=== PATIENT | male | born 1970 | race African-American/Black ===

== ENCOUNTER 2017-06-04 17:56 | Inpatient (IN) | payer MEDICARE, MEDICAID ==
[~2017-06-04] VITALS: Ht 190.5 cm; Wt 93.4 kg
[~2017-06-04 17:56] MED LIST: AMIODARONE PA; ATOR20TA PO; HYDR-523 PO; LABE100T PO; LOSA100T3 PO; METO-293 PO; NEPVIT PO; SEVE800T8 PO
[2017-06-04] MEDS ORDERED: MORPHINE SULFATE 4 MG/ML CPJ (NOT FOR IM USE) IV STA (19:15)
[2017-06-04] MEDS ORDERED: ONDANSETRON HCL 4MG/2ML VIAL IV STA (19:15)
[2017-06-04] MEDS ORDERED: ASPIRIN 325MG EC TABLET PO ONE (19:15)
[2017-06-04] MEDS ORDERED: SODIUM CHLORIDE 0.9% 500 ML IV ONE (19:15)
[2017-06-04 22:53] LABS: BASOPHILS % 0.7 % (0.0-2.0); EOSINOPHILS % 1.5 % (0.0-5.0); HEMATOCRIT. 29.6 % (42.0-52.0); HEMOGLOBIN. 9.2 g/dL (14.0-18.0); LYMPHOCYTES % 14.6 % (20.0-50.0); MEAN CORPUSCULAR HEMOGLOBIN 27.3 pg (28.0-32.0); MEAN CORPUSCULAR VOLUME 88.4 fL (80.0-94.0); MEAN PLATELET VOLUME 10.8 fl (7.4-10.4); MONOCYTES % 7.6 % (2.0-8.0); NEUTROPHILS % 75.6 % (40.0-76.0); PLATELET 169 x1000/uL (130-400); RED BLOOD CELL COUNT 3.35 mill/uL (4.7-6.1); RED CELL DISTRIBUTION WIDTH 20.3 % (11.6-14.6)
[2017-06-04 22:55] LABS: CHLORIDE 100 mEq/L (98-107)
[2017-06-04 22:58] LABS: INR 1.3; PARTIAL THROMBOPLASTIN TIME 36.1 sec (23.4-31.0)
[2017-06-04 23:06] LABS: CARBON DIOXIDE 25 mEq/L (21-32); TROPONIN I < 0.02 ng/mL (0.00-0.04)
[2017-06-05] MEDS ORDERED: MORPHINE SULFATE 4 MG/ML CPJ (NOT FOR IM USE) IV ONE (01:00)
[2017-06-05] MEDS ORDERED: ONDANSETRON HCL 4MG/2ML VIAL IV ONE (01:00)
[2017-06-05] MEDS ORDERED: IPRATROPIUM/ALBUTEROL 0.5-3(2.5)MG/3ML NEB INH PRN (03:00)
[2017-06-05] MEDS ORDERED: MAGNESIUM/ALUMINUM HYDROXIDE/SIMETHICONE 30ML UDC PO PRN (03:00)
[2017-06-05] MEDS ORDERED: ONDANSETRON HCL 4MG/2ML VIAL IV PRN (03:00)
[2017-06-05] MEDS ORDERED: MORPHINE SULFATE 4 MG/ML CPJ (NOT FOR IM USE) IV PRN (03:15)
[2017-06-05] MEDS: SODIUM CHLORIDE 0.9% INJ 3ML FLUSH IVF SCH ×3 (06:24→21:54)
[2017-06-05 09:00] VITALS: BP 115/35
[2017-06-05] MEDS: LABETALOL HCL 100MG TABLET PO SCH ×2 (09:30→21:00)
[2017-06-05 10:00] VITALS: BP 115/35
[2017-06-05] MEDS: FOLIC ACID/VITAMIN B COMP W-C TABLET PO SCH (10:05)
[2017-06-05] MEDS: SEVELAMER CARBONATE 800 MG TABLET PO SCH ×3 (10:05→18:35)
[2017-06-05] MEDS ORDERED: DEXTROSE 50% WATER 50ML SYRINGE IV PRN (11:45)
[2017-06-05] MEDS: INSULIN LISPRO 100 UNITS/ML SUBCUT SCH ×3 (12:28→21:00)
[2017-06-05] MEDS: BLOOD SUGAR DIAGNOSTIC STRIP TEST SCH ×3 (12:28→21:40)
[2017-06-05 12:55] VITALS: BP 110/44
[2017-06-05] MEDS: IBUPROFEN 600MG TABLET PO SCH ×2 (15:40→21:55)
[2017-06-05 16:00] VITALS: BP 118/42
[2017-06-05 20:00] VITALS: BP 112/71
[2017-06-05] MEDS ORDERED: LOSARTAN POTASSIUM 100 MG TABLET PO SCH ×2 (21:00)
[2017-06-05] MEDS: ATORVASTATIN CALCIUM 20MG TABLET PO SCH (21:53)
[2017-06-05] MEDS: EPOETIN ALFA 10000UNITS/ML VIAL SUBCUT SCH (21:53)
[2017-06-05] MEDS ORDERED: LOSARTAN POTASSIUM 25 MG TABLET PO SCH (23:00)
[2017-06-06] VITALS: BP 102/52
[2017-06-06 04:00] VITALS: BP 108/66
[2017-06-06] MEDS: SODIUM CHLORIDE 0.9% INJ 3ML FLUSH IVF SCH ×3 (06:03→21:25)
[2017-06-06] MEDS: IBUPROFEN 600MG TABLET PO SCH ×3 (06:04→21:24)
[2017-06-06] MEDS: BLOOD SUGAR DIAGNOSTIC STRIP TEST SCH ×4 (06:04→21:21)
[2017-06-06 07:31] LABS: HEMATOCRIT 27.4 % (42.0-52.0); HEMOGLOBIN 8.7 g/dL (14.0-18.0); MEAN CORPUSCULAR HEMOGLOBIN 27.6 pg (28.0-32.0); MEAN CORPUSCULAR VOLUME 87.3 fL (80.0-94.0); PLATELET 164 x1000/uL (130-400); RED BLOOD CELL COUNT 3.14 mill/uL (4.7-6.1); RED CELL DISTRIBUTION WIDTH 20.4 % (11.6-14.6)
[2017-06-06] MEDS: INSULIN LISPRO 100 UNITS/ML SUBCUT SCH ×4 (07:35→21:00)
[2017-06-06 08:00] VITALS: BP 114/44
[2017-06-06] MEDS: LABETALOL HCL 100MG TABLET PO SCH ×2 (08:45→21:00)
[2017-06-06] MEDS: SEVELAMER CARBONATE 800 MG TABLET PO SCH ×3 (09:01→17:44)
[2017-06-06] MEDS: FOLIC ACID/VITAMIN B COMP W-C TABLET PO SCH (09:01)
[2017-06-06] MEDS ORDERED: LIDOCAINE HCL 1% 20ML VIAL (Pyxis) INJ ONE (09:58)
[2017-06-06] MEDS ORDERED: SODIUM BICARBONATE 4% (2.4MEQ) 5ML VIAL IV ONE (09:59)
[2017-06-06 12:00] VITALS: BP 96/51
[2017-06-06] MEDS: IRON SUCROSE COMPLEX 100 MG/5 ML ML IV SCH (14:53)
[2017-06-06 16:00] VITALS: BP 114/49
[2017-06-06] MEDS: CEFEPIME 2,000 MG in DEXT 5% WATER 100 ML IV SCH (17:43)
[2017-06-06 20:00] VITALS: BP 109/62
[2017-06-06] MEDS: HYDROCODONE/ACETAMINOPHEN 5/325MG TABLET PO PRN (20:23)
[2017-06-06] MEDS: ATORVASTATIN CALCIUM 20MG TABLET PO SCH (21:20)
[2017-06-07 00:57] VITALS: BP 104/72
[2017-06-07 04:00] VITALS: BP 108/68
[2017-06-07] MEDS: SODIUM CHLORIDE 0.9% INJ 3ML FLUSH IVF SCH ×3 (06:36→21:22)
[2017-06-07] MEDS: IBUPROFEN 600MG TABLET PO SCH ×3 (06:36→21:32)
[2017-06-07] MEDS: BLOOD SUGAR DIAGNOSTIC STRIP TEST SCH ×4 (07:40→21:22)
[2017-06-07 07:43] LABS: HEMATOCRIT 27.5 % (42.0-52.0); HEMOGLOBIN 8.7 g/dL (14.0-18.0); MEAN CORPUSCULAR HEMOGLOBIN 27.5 pg (28.0-32.0); MEAN CORPUSCULAR VOLUME 86.5 fL (80.0-94.0); PLATELET 149 x1000/uL (130-400); RED BLOOD CELL COUNT 3.17 mill/uL (4.7-6.1); RED CELL DISTRIBUTION WIDTH 20.2 % (11.6-14.6)
[2017-06-07 08:00] VITALS: BP 105/74
[2017-06-07] MEDS: INSULIN LISPRO 100 UNITS/ML SUBCUT SCH ×4 (08:10→21:00)
[2017-06-07] MEDS: LABETALOL HCL 100MG TABLET PO SCH ×2 (09:00→21:00)
[2017-06-07] MEDS: CEFEPIME 2,000 MG in DEXT 5% WATER 100 ML IV SCH (09:08)
[2017-06-07] MEDS: SEVELAMER CARBONATE 800 MG TABLET PO SCH ×3 (09:23→18:07)
[2017-06-07] MEDS: FOLIC ACID/VITAMIN B COMP W-C TABLET PO SCH (09:24)
[2017-06-07 12:00] VITALS: BP 99/55
[2017-06-07 16:00] VITALS: BP 102/59
[2017-06-07 20:00] VITALS: BP 121/75
[2017-06-07] MEDS: EPOETIN ALFA 10000UNITS/ML VIAL SUBCUT SCH (21:00)
[2017-06-07] MEDS: ATORVASTATIN CALCIUM 20MG TABLET PO SCH (21:20)
[2017-06-08] VITALS: BP 139/67
[2017-06-08] MEDS: SODIUM CHLORIDE 0.9% INJ 3ML FLUSH IVF SCH ×3 (06:07→22:08)
[2017-06-08] MEDS: IBUPROFEN 600MG TABLET PO SCH ×4 (06:09→22:15)
[2017-06-08] MEDS: EPOETIN ALFA 10000UNITS/ML VIAL SUBCUT SCH (06:10)
[2017-06-08] MEDS: BLOOD SUGAR DIAGNOSTIC STRIP TEST SCH ×4 (07:40→21:01)
[2017-06-08] MEDS: INSULIN LISPRO 100 UNITS/ML SUBCUT SCH ×4 (07:52→21:00)
[2017-06-08 08:00] VITALS: BP 111/45
[2017-06-08 08:03] LABS: PHOSPHORUS 3.8 mg/dL (2.5-4.9)
[2017-06-08] MEDS: LABETALOL HCL 100MG TABLET PO SCH ×2 (08:39→21:01)
[2017-06-08] MEDS: FOLIC ACID/VITAMIN B COMP W-C TABLET PO SCH (08:40)
[2017-06-08] MEDS: SEVELAMER CARBONATE 800 MG TABLET PO SCH ×3 (08:40→17:01)
[2017-06-08] MEDS: CEFEPIME 2,000 MG in DEXT 5% WATER 100 ML IV SCH (08:40)
[2017-06-08] MEDS: IRON SUCROSE COMPLEX 100 MG/5 ML ML IV SCH (10:05)
[2017-06-08 11:00] LABS: HEMATOCRIT 25.8 % (42.0-52.0); HEMOGLOBIN 8.1 g/dL (14.0-18.0); MEAN CORPUSCULAR VOLUME 86.1 fL (80.0-94.0); PLATELET 140 x1000/uL (130-400); RED CELL DISTRIBUTION WIDTH 20.1 % (11.6-14.6)
[2017-06-08] MEDS: HYDROCODONE/ACETAMINOPHEN 5/325MG TABLET PO PRN (11:37)
[2017-06-08] MEDS: DOCUSATE SODIUM 250MG CAPSULE PO SCH (13:19)
[2017-06-08 16:00] VITALS: BP 131/70
[2017-06-08] MEDS: CEFAZOLIN 2,000 MG in DEXT 5% WATER 100 ML IV SCH (17:00)
[2017-06-08 20:00] VITALS: BP 151/55
[2017-06-08 20:05] VITALS: BP 151/55
[2017-06-08] MEDS: ATORVASTATIN CALCIUM 20MG TABLET PO SCH (21:01)
[2017-06-09 00:05] VITALS: BP 131/56
[2017-06-09 04:05] VITALS: BP 146/65
[2017-06-09] MEDS: DIPHENHYDRAMINE 50MG/ML VIAL IV PRN ×2 (04:18→23:27)
[2017-06-09 05:38] LABS: HEMATOCRIT 27.5 % (42.0-52.0); HEMOGLOBIN 8.8 g/dL (14.0-18.0); MEAN CORPUSCULAR HEMOGLOBIN 27.5 pg (28.0-32.0); MEAN CORPUSCULAR VOLUME 85.9 fL (80.0-94.0); PLATELET 146 x1000/uL (130-400); RED CELL DISTRIBUTION WIDTH 19.9 % (11.6-14.6)
[2017-06-09] MEDS: SODIUM CHLORIDE 0.9% INJ 3ML FLUSH IVF SCH ×3 (05:59→23:17)
[2017-06-09] MEDS: IBUPROFEN 600MG TABLET PO SCH ×3 (05:59→23:20)
[2017-06-09] MEDS: BLOOD SUGAR DIAGNOSTIC STRIP TEST SCH ×4 (07:26→23:18)
[2017-06-09] MEDS: INSULIN LISPRO 100 UNITS/ML SUBCUT SCH ×4 (07:28→21:00)
[2017-06-09] MEDS: DOCUSATE SODIUM 250MG CAPSULE PO SCH (08:58)
[2017-06-09] MEDS: FOLIC ACID/VITAMIN B COMP W-C TABLET PO SCH (08:58)
[2017-06-09] MEDS: SEVELAMER CARBONATE 800 MG TABLET PO SCH ×3 (08:58→17:58)
[2017-06-09] MEDS: LABETALOL HCL 100MG TABLET PO SCH ×2 (08:59→23:21)
[2017-06-09] MEDS: CEFAZOLIN 2,000 MG in DEXT 5% WATER 100 ML IV SCH (09:05)
[2017-06-09 10:00] VITALS: BP 151/76
[2017-06-09] MEDS: DILTIAZEM HCL 60MG TABLET PO SCH ×2 (13:39→23:26)
[2017-06-09 16:00] VITALS: BP 114/57
[2017-06-09] MEDS: POLYETHYLENE GLYCOL 3350 (17GM) 1 DOSE PACK PO PRN (16:17)
[2017-06-09 19:27] LABS: INR 1.4; PROTHROMBIN TIME 14.4 sec (9.4-11.6)
[2017-06-09 20:00] VITALS: BP 148/71
[2017-06-09] MEDS ORDERED: WARFARIN SODIUM 5MG TABLET PO NR (20:00)
[2017-06-09] MEDS: ATORVASTATIN CALCIUM 20MG TABLET PO SCH (23:20)
[2017-06-10] VITALS (7 sets, daily range): BP systolic 116–174; BP diastolic 58–81
[2017-06-10] MEDS: CLONIDINE 0.1MG TABLET PO PRN (01:59)
[2017-06-10] MEDS: DIPHENHYDRAMINE 50MG/ML VIAL IV PRN (04:29)
[2017-06-10 05:21] LABS: EOSINOPHILS % 4.8 % (0.0-5.0); LYMPHOCYTES % 18.8 % (20.0-50.0); MEAN CORPUSCULAR VOLUME 88.1 fL (80.0-94.0); MEAN PLATELET VOLUME 10.3 fl (7.4-10.4); NEUTROPHILS % 63.4 % (40.0-76.0); PLATELET 157 x1000/uL (130-400); RED BLOOD CELL COUNT 2.95 mill/uL (4.7-6.1); RED CELL DISTRIBUTION WIDTH 20.2 % (11.6-14.6)
[2017-06-10 05:27] LABS: INR 1.3; PROTHROMBIN TIME 13.9 sec (9.4-11.6)
[2017-06-10] MEDS: IBUPROFEN 600MG TABLET PO SCH ×3 (06:00→22:10)
[2017-06-10] MEDS: DILTIAZEM HCL 60MG TABLET PO SCH ×3 (06:00→22:10)
[2017-06-10] MEDS: SODIUM CHLORIDE 0.9% INJ 3ML FLUSH IVF SCH ×3 (07:05→22:11)
[2017-06-10] MEDS: INSULIN LISPRO 100 UNITS/ML SUBCUT SCH ×4 (07:34→21:00)
[2017-06-10] MEDS: BLOOD SUGAR DIAGNOSTIC STRIP TEST SCH ×4 (07:34→22:12)
[2017-06-10] MEDS: LABETALOL HCL 100MG TABLET PO SCH ×2 (09:00→22:11)
[2017-06-10] MEDS: FOLIC ACID/VITAMIN B COMP W-C TABLET PO SCH (09:05)
[2017-06-10] MEDS: DOCUSATE SODIUM 250MG CAPSULE PO SCH (09:05)
[2017-06-10] MEDS: SEVELAMER CARBONATE 800 MG TABLET PO SCH ×3 (09:05→18:48)
[2017-06-10] MEDS: IRON SUCROSE COMPLEX 100 MG/5 ML ML IV SCH (11:31)
[2017-06-10] MEDS: CEFAZOLIN 2,000 MG in DEXT 5% WATER 100 ML IV SCH (11:31)
[2017-06-10 11:56] LABS: HEMATOCRIT 25.7 % (42.0-52.0); HEMOGLOBIN 8.1 g/dL (14.0-18.0)
[2017-06-10] MEDS ORDERED: LORAZEPAM 1MG TABLET PO PRN (20:45)
[2017-06-10] MEDS ORDERED: SORBITOL 70% SOLN 30ML PO NR (20:45)
[2017-06-10] MEDS ORDERED: NA PHOS,M-B/NA PHOS,DI-BA ENEMA 118ML PR PRN (20:45)
[2017-06-10] MEDS ORDERED: TEMAZEPAM 15MG CAPSULE PO PRN (20:45)
[2017-06-10] MEDS: ATORVASTATIN CALCIUM 20MG TABLET PO SCH (22:10)
[2017-06-10] MEDS: EPOETIN ALFA 10000UNITS/ML VIAL SUBCUT SCH (22:11)
[2017-06-11] VITALS (9 sets, daily range): BP systolic 121–183; BP diastolic 53–95
[2017-06-11] MEDS: SODIUM CHLORIDE 0.9% INJ 3ML FLUSH IVF SCH ×3 (05:49→21:30)
[2017-06-11] MEDS: DILTIAZEM HCL 60MG TABLET PO SCH ×3 (05:49→21:30)
[2017-06-11] MEDS: IBUPROFEN 600MG TABLET PO SCH ×3 (05:49→21:30)
[2017-06-11 07:03] LABS: PROTHROMBIN TIME 20.7 sec (9.4-11.6)
[2017-06-11 07:29] LABS: BASOPHILS % 0.5 % (0.0-2.0); EOSINOPHILS % 3.8 % (0.0-5.0); HEMATOCRIT. 26.6 % (42.0-52.0); HEMOGLOBIN. 8.5 g/dL (14.0-18.0); LYMPHOCYTES % 16.6 % (20.0-50.0); MEAN CORPUSCULAR HEMOGLOBIN 27.5 pg (28.0-32.0); MEAN CORPUSCULAR VOLUME 86.2 fL (80.0-94.0); MEAN PLATELET VOLUME 10.1 fl (7.4-10.4); MONOCYTES % 8.3 % (2.0-8.0); NEUTROPHILS % 70.8 % (40.0-76.0); PLATELET 133 x1000/uL (130-400); RED BLOOD CELL COUNT 3.09 mill/uL (4.7-6.1); RED CELL DISTRIBUTION WIDTH 19.8 % (11.6-14.6)
[2017-06-11] MEDS: BLOOD SUGAR DIAGNOSTIC STRIP TEST SCH ×4 (07:40→20:40)
[2017-06-11] MEDS: INSULIN LISPRO 100 UNITS/ML SUBCUT SCH ×4 (08:10→20:40)
[2017-06-11] MEDS ORDERED: PHYTONADIONE 10MG/ML AMP SUBCUT NR (09:00)
[2017-06-11] MEDS: DOCUSATE SODIUM 250MG CAPSULE PO SCH (09:47)
[2017-06-11] MEDS: CEFAZOLIN 2,000 MG in DEXT 5% WATER 100 ML IV SCH (09:47)
[2017-06-11] MEDS: CLONIDINE 0.1MG TABLET PO PRN (09:48)
[2017-06-11] MEDS: SEVELAMER CARBONATE 800 MG TABLET PO SCH ×3 (09:48→17:40)
[2017-06-11] MEDS: FOLIC ACID/VITAMIN B COMP W-C TABLET PO SCH (09:49)
[2017-06-11] MEDS: LABETALOL HCL 100MG TABLET PO SCH ×2 (09:50→20:39)
[2017-06-11] MEDS: POLYETHYLENE GLYCOL 3350 (17GM) 1 DOSE PACK PO PRN (13:00)
[2017-06-11] MEDS: ACETAMINOPHEN 325MG TABLET PO PRN (20:36)
[2017-06-11] MEDS: ATORVASTATIN CALCIUM 20MG TABLET PO SCH (20:39)
[2017-06-12] VITALS (14 sets, daily range): BP systolic 133–172; BP diastolic 50–76
[2017-06-12] MEDS: SODIUM CHLORIDE 0.9% INJ 3ML FLUSH IVF SCH ×3 (05:44→21:32)
[2017-06-12] MEDS: DILTIAZEM HCL 60MG TABLET PO SCH ×3 (05:44→21:32)
[2017-06-12] MEDS: IBUPROFEN 600MG TABLET PO SCH ×3 (05:45→21:34)
[2017-06-12 06:37] LABS: INR 1.5; PROTHROMBIN TIME 15.8 sec (9.4-11.6)
[2017-06-12 07:18] LABS: HEMATOCRIT 29.6 % (42.0-52.0); HEMOGLOBIN 9.4 g/dL (14.0-18.0); MEAN CORPUSCULAR HEMOGLOBIN 27.5 pg (28.0-32.0); MEAN CORPUSCULAR VOLUME 86.6 fL (80.0-94.0); PLATELET 152 x1000/uL (130-400); RED BLOOD CELL COUNT 3.42 mill/uL (4.7-6.1)
[2017-06-12] MEDS: BLOOD SUGAR DIAGNOSTIC STRIP TEST SCH ×4 (07:40→21:32)
[2017-06-12] MEDS: INSULIN LISPRO 100 UNITS/ML SUBCUT SCH ×4 (08:10→21:00)
[2017-06-12] MEDS: LABETALOL HCL 100MG TABLET PO SCH ×2 (09:00→21:31)
[2017-06-12] MEDS: SEVELAMER CARBONATE 800 MG TABLET PO SCH ×3 (10:19→18:23)
[2017-06-12] MEDS: FOLIC ACID/VITAMIN B COMP W-C TABLET PO SCH (10:19)
[2017-06-12] MEDS: CEFAZOLIN 2,000 MG in DEXT 5% WATER 100 ML IV SCH (10:20)
[2017-06-12] MEDS: DOCUSATE SODIUM 250MG CAPSULE PO SCH (10:20)
[2017-06-12] MEDS ORDERED: SODIUM BICARBONATE 4% (2.4MEQ) 5ML VIAL IV ONE (10:53)
[2017-06-12] MEDS ORDERED: LIDOCAINE HCL 1% 20ML VIAL (Pyxis) INJ ONE (10:53)
[2017-06-12] MEDS ORDERED: FENTANYL CITRATE/PF 50MCG/ML 2ML VIAL IV ONE (11:15)
[2017-06-12] MEDS ORDERED: FENTANYL CITRATE/PF 50MCG/ML 2ML VIAL ONE (11:24)
[2017-06-12] MEDS: POLYETHYLENE GLYCOL 3350 (17GM) 1 DOSE PACK PO PRN (21:32)
[2017-06-12] MEDS: ATORVASTATIN CALCIUM 20MG TABLET PO SCH (21:32)
[2017-06-13 04:00] VITALS: BP 149/84
[2017-06-13] MEDS: ACETAMINOPHEN 325MG TABLET PO PRN (04:30)
[2017-06-13] MEDS: IBUPROFEN 600MG TABLET PO SCH ×2 (06:00→13:49)
[2017-06-13] MEDS: SODIUM CHLORIDE 0.9% INJ 3ML FLUSH IVF SCH ×2 (06:00→13:49)
[2017-06-13] MEDS: DILTIAZEM HCL 60MG TABLET PO SCH ×3 (06:42→21:50)
[2017-06-13] MEDS: BLOOD SUGAR DIAGNOSTIC STRIP TEST SCH ×4 (07:40→21:39)
[2017-06-13] MEDS: INSULIN LISPRO 100 UNITS/ML SUBCUT SCH ×4 (07:44→21:00)
[2017-06-13 08:00] VITALS: BP 125/77
[2017-06-13] MEDS: DOCUSATE SODIUM 250MG CAPSULE PO SCH (08:15)
[2017-06-13] MEDS: FOLIC ACID/VITAMIN B COMP W-C TABLET PO SCH (08:16)
[2017-06-13] MEDS: LABETALOL HCL 100MG TABLET PO SCH ×2 (08:16→19:57)
[2017-06-13] MEDS: SEVELAMER CARBONATE 800 MG TABLET PO SCH ×3 (08:16→17:10)
[2017-06-13] MEDS: HYDROCODONE/ACETAMINOPHEN 5/325MG TABLET PO PRN ×2 (08:16→23:39)
[2017-06-13] MEDS: CEFAZOLIN 2,000 MG in DEXT 5% WATER 100 ML IV SCH (08:17)
[2017-06-13] MEDS ORDERED: IBUPROFEN 600MG TABLET PO PRN (09:30)
[2017-06-13 12:00] VITALS: BP 133/50
[2017-06-13 16:00] VITALS: BP 157/80
[2017-06-13] MEDS: ATORVASTATIN CALCIUM 20MG TABLET PO SCH (19:55)
[2017-06-13] MEDS: CLONIDINE 0.1MG TABLET PO PRN (19:55)
[2017-06-13 20:00] VITALS: BP 183/77
[2017-06-14] VITALS (8 sets, daily range): BP systolic 133–188; BP diastolic 64–105
[2017-06-14] MEDS: DILTIAZEM HCL 60MG TABLET PO SCH ×3 (05:27→21:37)
[2017-06-14] MEDS: BLOOD SUGAR DIAGNOSTIC STRIP TEST SCH ×4 (05:27→21:37)
[2017-06-14 06:21] LABS: HEMATOCRIT 29.1 % (42.0-52.0); HEMOGLOBIN 9.3 g/dL (14.0-18.0); MEAN CORPUSCULAR HEMOGLOBIN 27.6 pg (28.0-32.0); MEAN CORPUSCULAR VOLUME 86.5 fL (80.0-94.0); PLATELET 130 x1000/uL (130-400); RED BLOOD CELL COUNT 3.36 mill/uL (4.7-6.1); RED CELL DISTRIBUTION WIDTH 20.3 % (11.6-14.6)
[2017-06-14] MEDS: INSULIN LISPRO 100 UNITS/ML SUBCUT SCH ×4 (08:10→21:00)
[2017-06-14] MEDS: LABETALOL HCL 100MG TABLET PO SCH (08:34)
[2017-06-14] MEDS: FOLIC ACID/VITAMIN B COMP W-C TABLET PO SCH (08:34)
[2017-06-14] MEDS: DOCUSATE SODIUM 250MG CAPSULE PO SCH (08:34)
[2017-06-14] MEDS: SEVELAMER CARBONATE 800 MG TABLET PO SCH ×3 (08:34→17:59)
[2017-06-14] MEDS: ATORVASTATIN CALCIUM 20MG TABLET PO SCH (21:36)
[2017-06-14] MEDS: LABETALOL HCL 200MG TABLET PO SCH (21:36)
[2017-06-14] MEDS: HYDROCODONE/ACETAMINOPHEN 5/325MG TABLET PO PRN (21:41)
[2017-06-15] VITALS (8 sets, daily range): BP systolic 107–200; BP diastolic 52–110
[2017-06-15] MEDS: DILTIAZEM HCL 60MG TABLET PO SCH ×3 (06:26→20:37)
[2017-06-15] MEDS: BLOOD SUGAR DIAGNOSTIC STRIP TEST SCH ×4 (07:40→20:45)
[2017-06-15] MEDS: INSULIN LISPRO 100 UNITS/ML SUBCUT SCH ×4 (07:52→20:45)
[2017-06-15] MEDS: FOLIC ACID/VITAMIN B COMP W-C TABLET PO SCH (08:41)
[2017-06-15] MEDS: DOCUSATE SODIUM 250MG CAPSULE PO SCH (08:42)
[2017-06-15] MEDS: LABETALOL HCL 200MG TABLET PO SCH ×2 (08:42→20:37)
[2017-06-15] MEDS: SEVELAMER CARBONATE 800 MG TABLET PO SCH ×3 (08:42→18:10)
[2017-06-15] MEDS: HYDROCODONE/ACETAMINOPHEN 5/325MG TABLET PO PRN (08:42)
[2017-06-15] MEDS: CLONIDINE 0.1MG TABLET PO PRN (18:08)
[2017-06-15] MEDS: ATORVASTATIN CALCIUM 20MG TABLET PO SCH (20:36)
[2017-06-16] VITALS: BP 154/61
[2017-06-16] MEDS: HYDROCODONE/ACETAMINOPHEN 5/325MG TABLET PO PRN (02:40)
[2017-06-16 04:00] VITALS: BP_SYST 144; BP_DIAS 75; BP_DIAS 77
[2017-06-16] MEDS: DILTIAZEM HCL 60MG TABLET PO SCH ×3 (05:38→21:42)
[2017-06-16] MEDS: BLOOD SUGAR DIAGNOSTIC STRIP TEST SCH ×4 (06:02→21:41)
[2017-06-16 08:00] VITALS: BP 145/79
[2017-06-16] MEDS: INSULIN LISPRO 100 UNITS/ML SUBCUT SCH ×4 (08:10→21:00)
[2017-06-16] MEDS: DOCUSATE SODIUM 250MG CAPSULE PO SCH (08:24)
[2017-06-16] MEDS: LABETALOL HCL 200MG TABLET PO SCH ×2 (08:24→21:42)
[2017-06-16] MEDS: SEVELAMER CARBONATE 800 MG TABLET PO SCH ×3 (08:24→18:09)
[2017-06-16 12:00] VITALS: BP 144/81
[2017-06-16 16:00] VITALS: BP 145/81
[2017-06-16] MEDS: FOLIC ACID/VITAMIN B COMP W-C TABLET PO SCH (18:09)
[2017-06-16 20:00] VITALS: BP 182/82
[2017-06-16] MEDS: ATORVASTATIN CALCIUM 20MG TABLET PO SCH (21:42)
[2017-06-17] VITALS: BP 151/80
[2017-06-17] MEDS: HYDROCODONE/ACETAMINOPHEN 5/325MG TABLET PO PRN (03:27)
[2017-06-17 04:00] VITALS: BP 135/60
[2017-06-17] MEDS: DILTIAZEM HCL 60MG TABLET PO SCH ×4 (05:47→21:15)
[2017-06-17] MEDS: BLOOD SUGAR DIAGNOSTIC STRIP TEST SCH ×4 (06:55→21:16)
[2017-06-17 08:00] VITALS: BP 145/72
[2017-06-17] MEDS: INSULIN LISPRO 100 UNITS/ML SUBCUT SCH ×4 (08:10→21:00)
[2017-06-17] MEDS: FOLIC ACID/VITAMIN B COMP W-C TABLET PO SCH (08:31)
[2017-06-17] MEDS: DOCUSATE SODIUM 250MG CAPSULE PO SCH (08:31)
[2017-06-17] MEDS: LABETALOL HCL 200MG TABLET PO SCH ×2 (08:31→21:16)
[2017-06-17] MEDS: SEVELAMER CARBONATE 800 MG TABLET PO SCH ×3 (08:31→18:35)
[2017-06-17 11:29] LABS: HEMATOCRIT 27.7 % (42.0-52.0); HEMOGLOBIN 8.6 g/dL (14.0-18.0); MEAN CORPUSCULAR HEMOGLOBIN 27.6 pg (28.0-32.0); MEAN CORPUSCULAR VOLUME 88.6 fL (80.0-94.0); PLATELET 99 x1000/uL (130-400); RED BLOOD CELL COUNT 3.13 mill/uL (4.7-6.1); RED CELL DISTRIBUTION WIDTH 21.5 % (11.6-14.6)
[2017-06-17 12:00] VITALS: BP 154/77
[2017-06-17 15:52] VITALS: BP 159/79
[2017-06-17 20:00] VITALS: BP 183/58
[2017-06-17] MEDS ORDERED: EPOETIN ALFA 10000UNITS/ML VIAL SUBCUT NR (21:00)
[2017-06-17] MEDS ORDERED: TEMAZEPAM 15MG CAPSULE PO PRN (21:00)
[2017-06-17] MEDS: ATORVASTATIN CALCIUM 20MG TABLET PO SCH (21:16)
[2017-06-18 04:00] VITALS: BP 145/87
[2017-06-18] MEDS: DILTIAZEM HCL 60MG TABLET PO SCH (05:36)
[2017-06-18] MEDS: BLOOD SUGAR DIAGNOSTIC STRIP TEST SCH (06:40)
[2017-06-18] MEDS: INSULIN LISPRO 100 UNITS/ML SUBCUT SCH (08:10)
[2017-06-18] MEDS: LABETALOL HCL 200MG TABLET PO SCH (09:07)
[2017-06-18] MEDS: FOLIC ACID/VITAMIN B COMP W-C TABLET PO SCH (09:07)
[2017-06-18] MEDS: DOCUSATE SODIUM 250MG CAPSULE PO SCH (09:07)
[2017-06-18] MEDS: SEVELAMER CARBONATE 800 MG TABLET PO SCH (09:07)
[2017-06-18] MEDS: CLONIDINE 0.1MG TABLET PO PRN (12:47)
[2017-06-18] MEDS ORDERED: LOSARTAN POTASSIUM 25 MG TABLET PO SCH (13:15)
[2017-06-18] MEDS ORDERED: DILTIAZEM HCL 90MG TABLET PO SCH (14:00)
== END 2017-06-18 13:00 | disposition home or self-care (01) | DRG 314 ==
LOC: ER 06-05 00:59 → 7WST 06-05 01:04 → EDBEDREQTM 06-05 01:11 → EDBEDREQ 06-05 01:11 → ENRESERV 06-05 07:02
PROVIDERS: ADMIT Internal Medicine; ATTEND Internal Medicine
PROC: 5A1D60Z (ICD-10-PCS; principal; 2017-06-05)
PROC: 05PYX3Z Removal of Infusion Device from Upper Vein, External Approach (ICD-10-PCS; 2017-06-06)
PROC: 05HM33Z Insertion of Infusion Device into Right Internal Jugular Vein, Percutaneous Approach (ICD-10-PCS; 2017-06-07)
PROC: B5131ZA Fluoroscopy of Right Jugular Veins using Low Osmolar Contrast, Guidance (ICD-10-PCS; 2017-06-07)
PROC: B543ZZA Ultrasonography of Right Jugular Veins, Guidance (ICD-10-PCS; 2017-06-07)
PROC: 30233N1 Transfusion of Nonautologous Red Blood Cells into Peripheral Vein, Percutaneous Approach (ICD-10-PCS; 2017-06-11)
PROC: 05PYX3Z Removal of Infusion Device from Upper Vein, External Approach (ICD-10-PCS; 2017-06-12)
PROC: 02HV33Z Insertion of Infusion Device into Superior Vena Cava, Percutaneous Approach (ICD-10-PCS; 2017-06-12)
PROC: B5181ZA Fluoroscopy of Superior Vena Cava using Low Osmolar Contrast, Guidance (ICD-10-PCS; 2017-06-12)
DX: T80.211A Bloodstream infection due to central venous catheter, initial encounter (principal); A41.9 Sepsis, unspecified organism; I13.2 Hypertensive heart and chronic kidney disease with heart failure and with stage 5 chronic kidney disease, or end stage renal disease; N18.6 End stage renal disease; E46 Unspecified protein-calorie malnutrition; E11.22 Type 2 diabetes mellitus with diabetic chronic kidney disease; I27.2 Other secondary pulmonary hypertension; I48.92 Unspecified atrial flutter; I48.91 Unspecified atrial fibrillation; M46.26 Osteomyelitis of vertebra, lumbar region; M86.60 Other chronic osteomyelitis, unspecified site; E11.51 Type 2 diabetes mellitus with diabetic peripheral angiopathy without gangrene; I50.9 Heart failure, unspecified; E11.319 Type 2 diabetes mellitus with unspecified diabetic retinopathy without macular edema; H54.8 Legal blindness, as defined in USA; D63.1 Anemia in chronic kidney disease; H26.9 Unspecified cataract; K31.84 Gastroparesis; B95.61 Methicillin susceptible Staphylococcus aureus infection as the cause of diseases classified elsewhere; E11.43 Type 2 diabetes mellitus with diabetic autonomic (poly)neuropathy; E78.00 Pure hypercholesterolemia, unspecified; I25.10 Atherosclerotic heart disease of native coronary artery without angina pectoris; K59.00 Constipation, unspecified; Y84.8 Other medical procedures as the cause of abnormal reaction of the patient, or of later complication, without mention of misadventure at the time of the procedure; Z59.0 Homelessness; Z79.899 Other long term (current) drug therapy; Z82.49 Family history of ischemic heart disease and other diseases of the circulatory system; Z99.2 Dependence on renal dialysis; Z91.81 History of falling; Z68.25 Body mass index [BMI] 25.0-25.9, adult; Z88.8 Allergy status to other drugs, medicaments and biological substances; Z89.9 Acquired absence of limb, unspecified
CPT/HCPCS: 36415; 36556; 36558; 36589; 71010; 73521; 76937; 77001; 80048; 80053; 82962; 83540; 83550; 83690; 83735; 83880; 84100; 84443; 84484; 85014; 85018; 85025; 85027; 85610; 85651; 85730; 86140; 86850; 86900; 86920; 87040; 87070; 87077; 87186; 93005; 93306; 93880; 96361; 96374; 96375; 96376; 97162; 99285; C1750; C1752; C1893; J0690; J0692; J0885; J1200; J1642; J2270; J2405; J3010; J3430; J3490; J7030; J7040; J7050; J7060; P9016

== ENCOUNTER 2017-10-10 16:53 | Emergency (ER) | payer MEDICARE, MEDICAID ==
[~2017-10-10] VITALS: Ht 182.9 cm; Wt 59.0 kg
[2017-10-11] MEDS ORDERED: ASPIRIN 81MG TABLET PO ONE (00:30)
[2017-10-11 00:55] LABS: BASOPHILS % 0.5 % (0.0-2.0); EOSINOPHILS % 3.2 % (0.0-5.0); HEMATOCRIT. 33.8 % (42.0-52.0); HEMOGLOBIN. 10.6 g/dL (14.0-18.0); LYMPHOCYTES % 14.9 % (20.0-50.0); MEAN CORPUSCULAR HEMOGLOBIN 26.8 pg (28.0-32.0); MEAN CORPUSCULAR VOLUME 85.3 fL (80.0-94.0); MONOCYTES % 7.9 % (2.0-8.0); NEUTROPHILS % 73.5 % (40.0-76.0); PLATELET 156 x1000/uL (130-400); RED BLOOD CELL COUNT 3.97 mill/uL (4.7-6.1); RED CELL DISTRIBUTION WIDTH 19.8 % (11.6-14.6)
[2017-10-11 01:02] LABS: INR 1.2; PROTHROMBIN TIME 12.6 sec (9.4-11.6)
[2017-10-11 01:16] LABS: CHLORIDE 103 mEq/L (98-107)
[2017-10-11 01:17] LABS: CARBON DIOXIDE 24 mEq/L (21-32)
[2017-10-11 01:18] LABS: TROPONIN I < 0.02 ng/mL (0.00-0.04)
[2017-10-11] MEDS ORDERED: VANCOMYCIN 1,500 MG in DEXT 5% WATER 250 ML IV SCH (04:15)
[2017-10-11 04:35] VITALS: BP 106/64
== END 2017-10-11 07:15 | disposition home or self-care (01) ==
LOC: ER 17:29 → CANBEDREQ 10-11 07:20
DX: T82.42XA Displacement of vascular dialysis catheter, initial encounter (principal); I48.91 Unspecified atrial fibrillation; D64.9 Anemia, unspecified; I25.10 Atherosclerotic heart disease of native coronary artery without angina pectoris; E11.9 Type 2 diabetes mellitus without complications; F12.10 Cannabis abuse, uncomplicated; E78.00 Pure hypercholesterolemia, unspecified; I12.0 Hypertensive chronic kidney disease with stage 5 chronic kidney disease or end stage renal disease; N28.89 Other specified disorders of kidney and ureter; Z79.82 Long term (current) use of aspirin; Z99.2 Dependence on renal dialysis; Z88.8 Allergy status to other drugs, medicaments and biological substances; Y92.89 Other specified places as the place of occurrence of the external cause
CPT/HCPCS: 36415; 71045; 80053; 83605; 83880; 84484; 85025; 85610; 87040; 87070; 87077; 87186; 87205; 93005; 96365; 99285; J3370; J7060

== ENCOUNTER 2017-12-02 06:16 | Inpatient (IN) | payer MEDICARE, MEDICAID ==
[~2017-12-02] VITALS: Ht 190.5 cm; Wt 93.9 kg
[2017-12-02] VITALS (22 sets, daily range): BP systolic 89–142; BP diastolic 54–79
[2017-12-02] MEDS ORDERED: ACETAMINOPHEN 325MG TABLET PO STA (06:46)
[2017-12-02] MEDS ORDERED: IBUPROFEN 800MG TABLET PO ONE (07:00)
[2017-12-02] MEDS ORDERED: SODIUM CHLORIDE 0.9% 1000ML BAG (SEPSIS BOLUS) IV ONE (07:00)
[2017-12-02] MEDS ORDERED: VANCOMYCIN 1 G PREMIX 200 ML IV ONE (07:30)
[2017-12-02] MEDS ORDERED: PIPERACILLIN/TAZ 3.375G PREMIX 50 ML IV ONE (07:30)
[2017-12-02 07:36] LABS: HEMATOCRIT. 25.9 % (42.0-52.0); HEMOGLOBIN. 8.2 g/dL (14.0-18.0); MEAN CORPUSCULAR HEMOGLOBIN 26.3 pg (28.0-32.0); MEAN CORPUSCULAR VOLUME 83.2 fL (80.0-94.0); MEAN PLATELET VOLUME 11.3 fl (7.4-10.4); PLATELET 78 x1000/uL (130-400); RED BLOOD CELL COUNT 3.12 mill/uL (4.7-6.1); RED CELL DISTRIBUTION WIDTH 19.3 % (11.6-14.6)
[2017-12-02 07:39] LABS: INR 1.6; PROTHROMBIN TIME 16.5 sec (9.4-11.6)
[2017-12-02 07:43] LABS: CHLORIDE 91 mEq/L (98-107)
[2017-12-02 08:23] LABS: PLATELET ESTIMATE SLIGHTLY DECREASED
[2017-12-02] MEDS ORDERED: NOREPINEPHRINE 4 MG in DEXT 5% WATER 250 ML IV STA (08:37)
[2017-12-02] MEDS ORDERED: NOREPINEPHRINE 4 MG in DEXT 5% WATER 246 ML IV STA (08:52)
[2017-12-02] MEDS ORDERED: CLONIDINE 0.1MG TABLET PO PRN (09:30)
[2017-12-02] MEDS ORDERED: ONDANSETRON HCL 4MG/2ML VIAL IV PRN (09:30)
[2017-12-02] MEDS ORDERED: ACETAMINOPHEN 325MG TABLET PO PRN (09:30)
[2017-12-02] MEDS ORDERED: ENOXAPARIN 40MG/0.4ML SYR SUBCUT SCH (09:30)
[2017-12-02] MEDS ORDERED: HYDROCODONE/ACETAMINOPHEN 5/325MG TABLET PO PRN (09:30)
[2017-12-02] MEDS ORDERED: DOCUSATE SODIUM 100MG CAPSULE PO PRN (09:30)
[2017-12-02] MEDS ORDERED: AMIODARONE HCL 900 MG in DEXT 5% WATER 482 ML IV SCH (17:00)
[2017-12-02] MEDS: HYDROCODONE/ACETAMINOPHEN 10/325MG TABLET PO PRN (18:22)
[2017-12-02] MEDS ORDERED: NOREPINEPHRINE 16 MG in DEXT 5% WATER 484 ML IV PRN (19:00)
[2017-12-02] MEDS ORDERED: METOCLOPRAMIDE HCL 10MG/2ML VIAL IV SCH (19:00)
[2017-12-02] MEDS ORDERED: PNEUMOCOCCAL 23-VAL P-SAC VAC 0.5 ML IM ONE (20:00)
[2017-12-02] MEDS: EPOETIN ALFA 10000UNITS/ML VIAL SUBCUT SCH (21:03)
[2017-12-03] VITALS (91 sets, daily range): BP systolic 68–167; BP diastolic 33–111
[2017-12-03] MEDS: DIPHENHYDRAMINE 50MG/ML VIAL IV PRN (02:45)
[2017-12-03 05:56] LABS: HEMATOCRIT. 35.2 % (42.0-52.0); HEMOGLOBIN. 11.2 g/dL (14.0-18.0); MEAN CORPUSCULAR HEMOGLOBIN 26.5 pg (28.0-32.0); MEAN CORPUSCULAR VOLUME 83.5 fL (80.0-94.0); RED BLOOD CELL COUNT 4.22 mill/uL (4.7-6.1); RED CELL DISTRIBUTION WIDTH 19.9 % (11.6-14.6)
[2017-12-03 06:15] LABS: CHLORIDE 94 mEq/L (98-107)
[2017-12-03 06:23] LABS: TROPONIN I < 0.02 ng/mL (0.00-0.04)
[2017-12-03 07:29] LABS: PLATELET ESTIMATE DECREASED
[2017-12-03 07:30] LABS: MEAN PLATELET VOLUME 11.4 fl (7.4-10.4); PLATELET 87 x1000/uL (130-400)
[2017-12-03 10:16] LABS: CHLORIDE 93 mEq/L (98-107)
[2017-12-03 10:30] LABS: HDL CHOLESTEROL 13 mg/dL (40-59); LDL CHOLESTEROL 41 mg/dL (5-100); PHOSPHORUS 6.7 mg/dL (2.5-4.9); TOTAL IRON BINDING CAPACITY 159 ug/dL (250-450)
[2017-12-03] MEDS ORDERED: NOREPINEPHRINE 16 MG in DEXT 5% WATER 484 ML IV PRN (13:36)
[2017-12-03] MEDS ORDERED: HEPARIN SODIUM 1,000 UNIT/1ML VIAL IV SCH (16:15)
[2017-12-03] MEDS: CEFTRIAXONE 2 G in DEXTROSE 5% WATER 50 ML IV SCH (17:33)
[2017-12-03] MEDS: HYDROCODONE/ACETAMINOPHEN 10/325MG TABLET PO PRN (22:28)
[2017-12-04] VITALS (48 sets, daily range): BP systolic 76–146; BP diastolic 41–86
[2017-12-04] MEDS: DIPHENHYDRAMINE 50MG/ML VIAL IV PRN ×2 (00:15→22:22)
[2017-12-04 07:35] LABS: HEMATOCRIT 29.4 % (42.0-52.0); HEMOGLOBIN 9.5 g/dL (14.0-18.0); MEAN CORPUSCULAR HEMOGLOBIN 26.6 pg (28.0-32.0); MEAN CORPUSCULAR VOLUME 82.3 fL (80.0-94.0); PLATELET 73 x1000/uL (130-400); RED BLOOD CELL COUNT 3.57 mill/uL (4.7-6.1); RED CELL DISTRIBUTION WIDTH 19.5 % (11.6-14.6)
[2017-12-04] MEDS ORDERED: DIPHENHYDRAMINE 50MG/ML VIAL IV SCH (12:00)
[2017-12-04] MEDS: CEFTRIAXONE 2 G in DEXTROSE 5% WATER 50 ML IV SCH ×2 (15:00→18:34)
[2017-12-04] MEDS ORDERED: HEPARIN SODIUM 1,000 UNIT/1ML VIAL IV NR (16:00)
[2017-12-04] MEDS: MIDODRINE HCL 5MG TABLET PO SCH (17:21)
[2017-12-04] MEDS ORDERED: NOREPINEPHRINE 16 MG in DEXT 5% WATER 484 ML IV PRN (18:30)
[2017-12-04] MEDS: EPOETIN ALFA 10000UNITS/ML VIAL SUBCUT SCH (21:56)
[2017-12-05] VITALS (22 sets, daily range): BP systolic 95–145; BP diastolic 49–79
[2017-12-05] MEDS: DIPHENHYDRAMINE 50MG/ML VIAL IV PRN ×4 (02:37→16:37)
[2017-12-05] MEDS: HYDROCODONE/ACETAMINOPHEN 10/325MG TABLET PO PRN ×2 (03:27→16:38)
[2017-12-05 06:18] LABS: HEMATOCRIT 26.4 % (42.0-52.0); HEMOGLOBIN 8.5 g/dL (14.0-18.0); MEAN CORPUSCULAR HEMOGLOBIN 26.6 pg (28.0-32.0); MEAN CORPUSCULAR VOLUME 83.1 fL (80.0-94.0); PLATELET 95 x1000/uL (130-400); RED BLOOD CELL COUNT 3.18 mill/uL (4.7-6.1); RED CELL DISTRIBUTION WIDTH 19.4 % (11.6-14.6)
[2017-12-05] MEDS: MIDODRINE HCL 5MG TABLET PO SCH ×3 (09:00→16:32)
[2017-12-05] MEDS ORDERED: DEXT 5%/0.9% NACL 1,000 ML IV SCH (09:45)
[2017-12-05] MEDS: DEXT 5%/0.9% NACL 1,000 ML IV SCH (09:49)
[2017-12-05] MEDS ORDERED: HYDROMORPHONE HCL/PF 2MG/ML CPJ IV NR (11:13)
[2017-12-05] MEDS ORDERED: FENTANYL CITRATE/PF 50MCG/ML 2ML VIAL ONE (12:18)
[2017-12-05] MEDS ORDERED: MIDAZOLAM HCL 5 MG/5 ML VIAL ONE (12:18)
[2017-12-05] MEDS ORDERED: LIDOCAINE HCL 2% JELLY 5ML ONE (12:19)
[2017-12-05] MEDS ORDERED: TETRACAINE/BENZOCAINE/BUTAMBEN 20 GM SPRAY MM ONE (12:22)
[2017-12-05] MEDS: CEFTRIAXONE 2 G in DEXTROSE 5% WATER 50 ML IV SCH (14:33)
[2017-12-05] MEDS: SEVELAMER CARBONATE 800 MG TABLET PO SCH (17:35)
[2017-12-06] VITALS (13 sets, daily range): BP systolic 108–138; BP diastolic 63–86
[2017-12-06] MEDS: DIPHENHYDRAMINE 50MG/ML VIAL IV PRN ×2 (00:54→11:01)
[2017-12-06 06:33] LABS: HEMATOCRIT 29.2 % (42.0-52.0); HEMOGLOBIN 9.1 g/dL (14.0-18.0); MEAN CORPUSCULAR HEMOGLOBIN 26.4 pg (28.0-32.0); MEAN CORPUSCULAR VOLUME 84.6 fL (80.0-94.0); PLATELET 112 x1000/uL (130-400); RED BLOOD CELL COUNT 3.45 mill/uL (4.7-6.1); RED CELL DISTRIBUTION WIDTH 19.9 % (11.6-14.6)
[2017-12-06] MEDS: SEVELAMER CARBONATE 800 MG TABLET PO SCH ×3 (07:44→18:14)
[2017-12-06] MEDS: MIDODRINE HCL 5MG TABLET PO SCH ×3 (07:44→18:14)
[2017-12-06] MEDS: DEXT 5%/0.9% NACL 1,000 ML IV SCH (09:05)
[2017-12-06] MEDS ORDERED: HEPARIN SODIUM 1,000 UNIT/1ML VIAL IV ONE (13:15)
[2017-12-06] MEDS ORDERED: HYDROCODONE/ACETAMINOPHEN 5/325MG TABLET PO PRN (13:30)
[2017-12-06] MEDS ORDERED: HYDROCODONE/ACETAMINOPHEN 10/325MG TABLET PO PRN (13:30)
[2017-12-06] MEDS: CEFTRIAXONE 2 G in DEXTROSE 5% WATER 50 ML IV SCH (15:37)
[2017-12-06] MEDS ORDERED: EPOETIN ALFA 10000UNITS/ML VIAL SUBCUT SCH (21:00)
[2017-12-07] VITALS: BP 133/85
[2017-12-07 04:00] VITALS: BP 118/75
[2017-12-07] MEDS: DIPHENHYDRAMINE 50MG/ML VIAL IV PRN ×2 (04:06→22:19)
[2017-12-07] MEDS: SEVELAMER CARBONATE 800 MG TABLET PO SCH ×3 (08:45→18:47)
[2017-12-07] MEDS: MIDODRINE HCL 5MG TABLET PO SCH ×3 (08:51→18:47)
[2017-12-07 12:36] VITALS: BP 106/87
[2017-12-07 14:37] VITALS: BP 135/81
[2017-12-07] MEDS ORDERED: IOHEXOL-350 100 ML BOTTLE ONE (16:37)
[2017-12-07 18:00] VITALS: BP 116/70
[2017-12-07] MEDS: CEFTRIAXONE 2 G in DEXTROSE 5% WATER 50 ML IV SCH (18:46)
[2017-12-08] VITALS (9 sets, daily range): BP systolic 98–164; BP diastolic 57–98
[2017-12-08] MEDS: DIPHENHYDRAMINE 50MG/ML VIAL IV PRN (02:14)
[2017-12-08] MEDS: SEVELAMER CARBONATE 800 MG TABLET PO SCH ×3 (08:00→18:00)
[2017-12-08 09:46] LABS: HEMATOCRIT 29.6 % (42.0-52.0); HEMOGLOBIN 9.4 g/dL (14.0-18.0); MEAN CORPUSCULAR HEMOGLOBIN 26.4 pg (28.0-32.0); MEAN CORPUSCULAR VOLUME 83.2 fL (80.0-94.0); PLATELET 107 x1000/uL (130-400); RED BLOOD CELL COUNT 3.55 mill/uL (4.7-6.1); RED CELL DISTRIBUTION WIDTH 20.3 % (11.6-14.6)
[2017-12-08] MEDS: MIDODRINE HCL 5MG TABLET PO SCH ×3 (12:20→17:00)
[2017-12-08] MEDS ORDERED: DEXTROSE 50% WATER 50ML SYRINGE IV NR (13:30)
[2017-12-08] MEDS ORDERED: DEXT 5%/0.45% NACL 500ML 500 ML IV ONE (13:30)
[2017-12-08] MEDS ORDERED: FENTANYL CITRATE/PF 50MCG/ML 2ML VIAL ONE ×2 (13:32→15:20)
[2017-12-08] MEDS ORDERED: MIDAZOLAM HCL 2 MG/2 ML VIAL ONE ×3 (13:33→16:04)
[2017-12-08] MEDS ORDERED: PROPOFOL 200MG/20ML VIAL IV ONE (13:34)
[2017-12-08] MEDS ORDERED: CEFAZOLIN SODIUM 1000MG/VIAL ONE (13:34)
[2017-12-08] MEDS ORDERED: SODIUM CHLORIDE 0.9% 10ML VIAL ONE (13:34)
[2017-12-08] MEDS ORDERED: LIDOCAINE HCL/PF 1% 10 MG/ML 5ML VIAL ONE (13:34)
[2017-12-08] MEDS ORDERED: DIPHENHYDRAMINE 50MG/ML VIAL ONE (13:35)
[2017-12-08 14:50] LABS: PHOSPHORUS 6.8 mg/dL (2.5-4.9)
[2017-12-08] MEDS: CEFTRIAXONE 2 G in DEXTROSE 5% WATER 50 ML IV SCH (15:00)
[2017-12-08] MEDS ORDERED: LIDOCAINE HCL 1% 20ML VIAL (Pyxis) INJ ONE (15:14)
[2017-12-08] MEDS ORDERED: EPHEDRINE SULFATE 50MG/ML VIAL ONE (16:54)
[2017-12-08] MEDS ORDERED: ATROPINE SULFATE 1MG/10ML SYR IV PRN (18:45)
[2017-12-08] MEDS ORDERED: HEPARIN SODIUM 1,000 UNIT/1ML VIAL IV ONE (20:17)
[2017-12-09] VITALS (8 sets, daily range): BP systolic 97–159; BP diastolic 67–86
[2017-12-09] MEDS: DIPHENHYDRAMINE 50MG/ML VIAL IV PRN (01:13)
[2017-12-09 07:09] LABS: BASOPHILS % 0.1 % (0.0-2.0); HEMATOCRIT 25.9 % (42.0-52.0); HEMATOCRIT. 25.9 % (42.0-52.0); HEMOGLOBIN 8.1 g/dL (14.0-18.0); HEMOGLOBIN. 8.1 g/dL (14.0-18.0); MEAN CORPUSCULAR HEMOGLOBIN 26.8 pg (28.0-32.0); MEAN CORPUSCULAR VOLUME 85.4 fL (80.0-94.0); MEAN PLATELET VOLUME 9.8 fl (7.4-10.4); MONOCYTES % 5.1 % (2.0-8.0); NEUTROPHILS % 82.8 % (40.0-76.0); PLATELET 109 x1000/uL (130-400); RED BLOOD CELL COUNT 3.04 mill/uL (4.7-6.1); RED CELL DISTRIBUTION WIDTH 20.2 % (11.6-14.6)
[2017-12-09] MEDS: SEVELAMER CARBONATE 800 MG TABLET PO SCH (08:00)
[2017-12-09] MEDS: MIDODRINE HCL 5MG TABLET PO SCH (10:28)
[2017-12-09] MEDS ORDERED: CALCIUM ACETATE 667MG CAPSULE PO SCH (13:00)
== END 2017-12-09 15:40 | disposition home or self-care (01) | DRG 853 ==
LOC: ER 06:17 → MICUNO 09:06 → EDBEDREQ 09:09 → EDBEDREQSVC 09:09 → EDBEDREQTM 09:09 → ENRESERV 15:28 → MICUNO 12-03 12:29 → 5EST 12-06 09:35
PROVIDERS: ADMIT Internal Medicine; ATTEND Internal Medicine
PROC: 06HN33Z Insertion of Infusion Device into Left Femoral Vein, Percutaneous Approach (ICD-10-PCS; 2017-12-02)
PROC: 5A1D70Z Performance of Urinary Filtration, Intermittent, Less than 6 Hours Per Day (ICD-10-PCS; 2017-12-03)
PROC: 06PYX3Z Removal of Infusion Device from Lower Vein, External Approach (ICD-10-PCS; 2017-12-04)
PROC: 06HN33Z Insertion of Infusion Device into Left Femoral Vein, Percutaneous Approach (ICD-10-PCS; 2017-12-04)
PROC: 5A1D70Z Performance of Urinary Filtration, Intermittent, Less than 6 Hours Per Day (ICD-10-PCS; 2017-12-04)
PROC: 5A1D70Z Performance of Urinary Filtration, Intermittent, Less than 6 Hours Per Day (ICD-10-PCS; 2017-12-05)
PROC: 5A1D70Z Performance of Urinary Filtration, Intermittent, Less than 6 Hours Per Day (ICD-10-PCS; 2017-12-06)
PROC: 02583ZZ Destruction of Conduction Mechanism, Percutaneous Approach (ICD-10-PCS; 2017-12-08)
PROC: 4A0234Z Measurement of Cardiac Electrical Activity, Percutaneous Approach (ICD-10-PCS; 2017-12-08)
PROC: 02K83ZZ Map Conduction Mechanism, Percutaneous Approach (ICD-10-PCS; 2017-12-08)
PROC: 4A023FZ Measurement of Cardiac Rhythm, Percutaneous Approach (ICD-10-PCS; principal; 2017-12-08 14:00)
PROC: 5A1D70Z Performance of Urinary Filtration, Intermittent, Less than 6 Hours Per Day (ICD-10-PCS; 2017-12-09)
DX: A40.1 Sepsis due to streptococcus, group B (principal); N18.6 End stage renal disease; D68.9 Coagulation defect, unspecified; D69.6 Thrombocytopenia, unspecified; D68.8 Other specified coagulation defects; E11.22 Type 2 diabetes mellitus with diabetic chronic kidney disease; I13.11 Hypertensive heart and chronic kidney disease without heart failure, with stage 5 chronic kidney disease, or end stage renal disease; E87.1 Hypo-osmolality and hyponatremia; I48.3 Typical atrial flutter; I48.1 Persistent atrial fibrillation; I48.92 Unspecified atrial flutter; I95.9 Hypotension, unspecified; E87.5 Hyperkalemia; E11.319 Type 2 diabetes mellitus with unspecified diabetic retinopathy without macular edema; D63.8 Anemia in other chronic diseases classified elsewhere; E11.51 Type 2 diabetes mellitus with diabetic peripheral angiopathy without gangrene; Z99.2 Dependence on renal dialysis; Z88.8 Allergy status to other drugs, medicaments and biological substances; Z79.899 Other long term (current) drug therapy; H54.8 Legal blindness, as defined in USA; K22.2 Esophageal obstruction; Z99.3 Dependence on wheelchair; Z98.1 Arthrodesis status; Z87.11 Personal history of peptic ulcer disease; E78.5 Hyperlipidemia, unspecified
CPT/HCPCS: 36415; 36556; 36569; 36589; 71045; 71260; 73502; 76937; 80048; 80053; 80061; 82962; 83540; 83550; 83605; 83735; 84100; 84484; 85025; 85027; 85610; 85651; 86140; 87040; 87077; 87186; 90732; 93005; 93306; 93613; 93621; 93653; 93662; 93970; 96365; 96375; 99291; A4216; A6261; C1731; C1732; C1752; C1759; C1893; J0171; J0690; J0696; J0885; J1170; J1200; J1644; J2250; J2405; J2543; J2704; J2765; J3010; J3370; J3490; J7030; J7042; J7050; J7060; Q9967

== ENCOUNTER 2018-03-20 17:05 | Inpatient (IN) | payer MEDICARE, MEDICAID ==
[~2018-03-20] VITALS: Ht 190.5 cm; Wt 111.1 kg
[2018-03-20 18:17] LABS: BASOPHILS % 1.1 % (0.0-2.0); EOSINOPHILS % 5.8 % (0.0-5.0); HEMATOCRIT. 29.9 % (42.0-52.0); HEMOGLOBIN. 9.5 g/dL (14.0-18.0); LYMPHOCYTES % 21.5 % (20.0-50.0); MEAN CORPUSCULAR HEMOGLOBIN 26.5 pg (28.0-32.0); MEAN CORPUSCULAR VOLUME 83.4 fL (80.0-94.0); MEAN PLATELET VOLUME 10.1 fl (7.4-10.4); MONOCYTES % 8.8 % (2.0-8.0); NEUTROPHILS % 62.8 % (40.0-76.0); PLATELET 94 x1000/uL (130-400); RED BLOOD CELL COUNT 3.58 mill/uL (4.7-6.1); RED CELL DISTRIBUTION WIDTH 24.7 % (11.6-14.6)
[2018-03-20 18:20] LABS: CHLORIDE 105 mEq/L (98-107); INR 1.3
[2018-03-20] MEDS ORDERED: DIPHENHYDRAMINE 25MG CAPSULE PO ONE (18:30)
[2018-03-20] MEDS ORDERED: SODIUM BICARBONATE 8.4% 1 MEQ/ML 50ML SYR IV ONE (18:45)
[2018-03-20] MEDS ORDERED: DEXTROSE 50% WATER 50ML SYRINGE IV ONE ×3 (18:45→21:33)
[2018-03-20] MEDS ORDERED: INSULIN REGULAR (HUMULIN R) 300UNITS/3ML IV ONE (18:45)
[2018-03-20 18:58] LABS: PLATELET ESTIMATE SLIGHTLY DECREASED
[2018-03-20] MEDS ORDERED: ALBUTEROL (0.083%) 2.5MG/3ML NEB HHN SCH (19:00)
[2018-03-20] MEDS ORDERED: DEXTROSE 50% WATER 50ML SYRINGE IV PRN (23:15)
[2018-03-20] MEDS ORDERED: SODIUM POLYSTYRENE SULFONATE 15 G/60 ML BOT PO SCH (23:30)
[2018-03-21] VITALS (7 sets, daily range): BP systolic 143–188; BP diastolic 78–110
[2018-03-21 00:56] LABS: CREATINE KINASE 560 IU/L (39-308)
[2018-03-21 00:58] LABS: CREATINE KINASE MB FRACTION 11.3 ng/mL (0.5-3.6)
[2018-03-21] MEDS: IPRATROPIUM/ALBUTEROL 0.5-3(2.5)MG/3ML NEB HHN SCH ×6 (01:26→20:23)
[2018-03-21] MEDS: BLOOD SUGAR DIAGNOSTIC STRIP TEST SCH ×4 (07:10→20:40)
[2018-03-21] MEDS: INSULIN LISPRO 100 UNITS/ML SUBCUT SCH ×4 (07:40→20:45)
[2018-03-21] MEDS ORDERED: MORPHINE SULFATE 4 MG/ML CPJ (NOT FOR IM USE) IV PRN (10:45)
[2018-03-21] MEDS ORDERED: LIDOCAINE HCL/PF 1% 10 MG/ML 5ML VIAL ONE (10:51)
[2018-03-21] MEDS: LORAZEPAM 2MG/ML CPJ IV PRN ×2 (10:54→21:34)
[2018-03-21] MEDS: CLONIDINE 0.1MG TABLET PO PRN (16:06)
[2018-03-21] MEDS ORDERED: ZOSYN XX SCH (16:15)
[2018-03-21] MEDS: AMLODIPINE 5MG TABLET PO SCH (17:07)
[2018-03-21] MEDS ORDERED: VANCOMYCIN 2,000 MG in DEXT 5% WATER 500 ML IV NR (18:00)
[2018-03-21] MEDS: PIPERACILLIN/TAZ 2.25G PREMIX 50 ML IV SCH (21:34)
[2018-03-21] MEDS: DIPHENHYDRAMINE 50MG/ML VIAL IV PRN (21:54)
[2018-03-22] VITALS: BP 131/78
[2018-03-22] MEDS: IPRATROPIUM/ALBUTEROL 0.5-3(2.5)MG/3ML NEB HHN SCH ×6 (00:11→20:02)
[2018-03-22 04:00] VITALS: BP 153/106
[2018-03-22] MEDS: PIPERACILLIN/TAZ 2.25G PREMIX 50 ML IV SCH ×2 (05:47→15:16)
[2018-03-22] MEDS: DIPHENHYDRAMINE 50MG/ML VIAL IV PRN ×2 (05:47→15:35)
[2018-03-22] MEDS: INSULIN LISPRO 100 UNITS/ML SUBCUT SCH ×3 (06:25→21:00)
[2018-03-22] MEDS: BLOOD SUGAR DIAGNOSTIC STRIP TEST SCH ×3 (06:25→21:00)
[2018-03-22 07:27] LABS: HEMATOCRIT. 29.5 % (42.0-52.0); HEMOGLOBIN. 9.3 g/dL (14.0-18.0); MEAN CORPUSCULAR HEMOGLOBIN 26.4 pg (28.0-32.0); MEAN CORPUSCULAR VOLUME 83.6 fL (80.0-94.0); MEAN PLATELET VOLUME 10.1 fl (7.4-10.4); PLATELET 82 x1000/uL (130-400); RED BLOOD CELL COUNT 3.53 mill/uL (4.7-6.1); RED CELL DISTRIBUTION WIDTH 23.6 % (11.6-14.6)
[2018-03-22 08:01] VITALS: BP 152/97
[2018-03-22 08:12] LABS: CHLORIDE 101 mEq/L (98-107)
[2018-03-22 08:45] LABS: HDL CHOLESTEROL 45 mg/dL (40-59)
[2018-03-22 08:46] LABS: CREATINE KINASE 849 IU/L (39-308); LDL CHOLESTEROL 43 mg/dL (5-100)
[2018-03-22 08:53] LABS: CREATINE KINASE MB FRACTION 10.6 ng/mL (0.5-3.6)
[2018-03-22] MEDS ORDERED: HEPARIN SODIUM 1,000 UNIT/1ML VIAL IV NR (09:30)
[2018-03-22] MEDS ORDERED: LIDOCAINE HCL/PF 1% 10 MG/ML 5ML VIAL ONE (11:36)
[2018-03-22] MEDS: AMLODIPINE 5MG TABLET PO SCH ×2 (11:40→17:30)
[2018-03-22 12:00] VITALS: BP 152/96
[2018-03-22 12:02] LABS: PLATELET ESTIMATE SLIGHTLY DECREASED
[2018-03-22 16:00] VITALS: BP 154/93
[2018-03-22 20:00] VITALS: BP 160/95
[2018-03-23] VITALS: BP 151/85
[2018-03-23] MEDS: IPRATROPIUM/ALBUTEROL 0.5-3(2.5)MG/3ML NEB HHN SCH ×5 (00:06→16:00)
[2018-03-23] MEDS: LORAZEPAM 2MG/ML CPJ IV PRN (01:04)
[2018-03-23 04:00] VITALS: BP 168/104
[2018-03-23] MEDS: DIPHENHYDRAMINE 50MG/ML VIAL IV PRN ×2 (05:09→23:21)
[2018-03-23] MEDS: BLOOD SUGAR DIAGNOSTIC STRIP TEST SCH ×4 (07:10→21:00)
[2018-03-23] MEDS: INSULIN LISPRO 100 UNITS/ML SUBCUT SCH ×3 (07:40→21:00)
[2018-03-23 08:00] VITALS: BP 179/104
[2018-03-23 08:45] LABS: BASOPHILS % 0.4 % (0.0-2.0); EOSINOPHILS % 5.6 % (0.0-5.0); HEMATOCRIT. 28.2 % (42.0-52.0); LYMPHOCYTES % 20.8 % (20.0-50.0); MEAN CORPUSCULAR HEMOGLOBIN 26.5 pg (28.0-32.0); MEAN CORPUSCULAR VOLUME 82.9 fL (80.0-94.0); MEAN PLATELET VOLUME 9.6 fl (7.4-10.4); MONOCYTES % 10.8 % (2.0-8.0); NEUTROPHILS % 62.4 % (40.0-76.0); PLATELET 76 x1000/uL (130-400); RED CELL DISTRIBUTION WIDTH 23.6 % (11.6-14.6)
[2018-03-23 08:56] LABS: INR 1.3
[2018-03-23 11:54] LABS: HEPATITIS B SURFACE ANTIGEN NEGATIVE
[2018-03-23 12:00] VITALS: BP 173/94
[2018-03-23 12:22] LABS: HEPATITIS B CORE AB IGM NEGATIVE
[2018-03-23 12:23] LABS: HEPATITIS A AB IGM NEGATIVE (NEGATIVE)
[2018-03-23] MEDS: AMLODIPINE 5MG TABLET PO SCH ×2 (13:57→16:59)
[2018-03-23] MEDS: CLONIDINE 0.1MG TABLET PO PRN (13:57)
[2018-03-23 16:00] VITALS: BP 143/86
[2018-03-23] MEDS: LOSARTAN POTASSIUM 100 MG TABLET PO SCH (16:59)
[2018-03-23] MEDS: FOLIC ACID/VITAMIN B COMP W-C TABLET PO SCH (17:01)
[2018-03-23] MEDS ORDERED: VANCOMYCIN 1250MG in DEXTROSE 5% WATER 250ML IV NR (18:00)
[2018-03-23 20:00] VITALS: BP 135/85
[2018-03-23] MEDS: ATORVASTATIN CALCIUM 20MG TABLET PO SCH (22:09)
[2018-03-24] VITALS (7 sets, daily range): BP systolic 138–152; BP diastolic 86–91
[2018-03-24] MEDS: IPRATROPIUM/ALBUTEROL 0.5-3(2.5)MG/3ML NEB HHN SCH ×6 (00:41→21:18)
[2018-03-24] MEDS: DIPHENHYDRAMINE 50MG/ML VIAL IV PRN ×2 (05:03→22:24)
[2018-03-24 07:03] LABS: BASOPHILS % 0.6 % (0.0-2.0); EOSINOPHILS % 5.9 % (0.0-5.0); HEMATOCRIT. 27.8 % (42.0-52.0); LYMPHOCYTES % 19.8 % (20.0-50.0); MEAN PLATELET VOLUME 9.5 fl (7.4-10.4); MONOCYTES % 12.4 % (2.0-8.0); NEUTROPHILS % 61.3 % (40.0-76.0); PLATELET 67 x1000/uL (130-400); RED BLOOD CELL COUNT 3.35 mill/uL (4.7-6.1); RED CELL DISTRIBUTION WIDTH 23.3 % (11.6-14.6)
[2018-03-24] MEDS: INSULIN LISPRO 100 UNITS/ML SUBCUT SCH ×4 (07:40→21:00)
[2018-03-24] MEDS: SEVELAMER CARBONATE 800 MG TABLET PO SCH ×3 (08:33→16:05)
[2018-03-24] MEDS: FOLIC ACID/VITAMIN B COMP W-C TABLET PO SCH (08:34)
[2018-03-24] MEDS: AMLODIPINE 5MG TABLET PO SCH ×2 (08:34→16:06)
[2018-03-24] MEDS: LOSARTAN POTASSIUM 100 MG TABLET PO SCH (08:34)
[2018-03-24 08:40] LABS: INR 1.3; PARTIAL THROMBOPLASTIN TIME 32.2 sec (23.4-31.0); PROTHROMBIN TIME 13.4 sec (9.4-11.6)
[2018-03-24] MEDS: BLOOD SUGAR DIAGNOSTIC STRIP TEST SCH ×3 (12:10→21:46)
[2018-03-24] MEDS: ATORVASTATIN CALCIUM 20MG TABLET PO SCH (20:32)
[2018-03-25] VITALS (14 sets, daily range): BP systolic 141–180; BP diastolic 79–109
[2018-03-25] MEDS: IPRATROPIUM/ALBUTEROL 0.5-3(2.5)MG/3ML NEB HHN SCH ×3 (00:49→09:17)
[2018-03-25] MEDS: LORAZEPAM 2MG/ML CPJ IV PRN (01:50)
[2018-03-25] MEDS ORDERED: LIDOCAINE HCL/PF 1% 10 MG/ML 5ML VIAL ONE ×2 (08:17→08:19)
[2018-03-25] MEDS ORDERED: SODIUM BICARBONATE 4% (2.4MEQ) 5ML VIAL IV ONE (08:18)
[2018-03-25] MEDS ORDERED: FENTANYL CITRATE/PF 50MCG/ML 2ML VIAL ONE (08:39)
[2018-03-25] MEDS ORDERED: MIDAZOLAM HCL 2 MG/2 ML VIAL ONE (08:50)
[2018-03-25] MEDS: FOLIC ACID/VITAMIN B COMP W-C TABLET PO SCH (09:23)
[2018-03-25] MEDS: SEVELAMER CARBONATE 800 MG TABLET PO SCH (09:23)
[2018-03-25] MEDS ORDERED: AMLO5TAB88 PO (09:45)
[2018-03-25] MEDS ORDERED: LOSA100T3 PO (09:45)
[2018-03-25] MEDS ORDERED: SEVE800T8 PO (09:45)
[2018-03-25] MEDS ORDERED: ATOR20TA PO (09:45)
[2018-03-25] MEDS ORDERED: IOHEXOL-300 50 ML BOTTLE IV ONE (10:32)
[2018-03-25] MEDS: BLOOD SUGAR DIAGNOSTIC STRIP TEST SCH (11:25)
[2018-03-25] MEDS ORDERED: HEPARIN SODIUM 1,000 UNIT/1ML VIAL IV NR (12:00)
[2018-03-25] MEDS: DIPHENHYDRAMINE 50MG/ML VIAL IV PRN (12:57)
[2018-03-25] MEDS ORDERED: EPOETIN ALFA 4000UNITS/ML VIAL SUBCUT SCH (21:00)
== END 2018-03-25 14:15 | disposition home or self-care (01) | DRG 314 ==
LOC: ER 17:05 → 8WST 18:36 → EDBEDREQ 18:39 → ENRESERV 18:58
PROVIDERS: ADMIT Internal Medicine; ATTEND Internal Medicine
PROC: 5A1D70Z Performance of Urinary Filtration, Intermittent, Less than 6 Hours Per Day (ICD-10-PCS; 2018-03-21)
PROC: 0JPWXXZ Removal of Tunneled Vascular Access Device from Lower Extremity Subcutaneous Tissue and Fascia, External Approach (ICD-10-PCS; principal; 2018-03-22)
PROC: 06PYX3Z Removal of Infusion Device from Lower Vein, External Approach (ICD-10-PCS; 2018-03-22)
PROC: 5A1D70Z Performance of Urinary Filtration, Intermittent, Less than 6 Hours Per Day (ICD-10-PCS; 2018-03-22)
PROC: 5A1D70Z Performance of Urinary Filtration, Intermittent, Less than 6 Hours Per Day (ICD-10-PCS; 2018-03-24)
PROC: 0JH63XZ Insertion of Tunneled Vascular Access Device into Chest Subcutaneous Tissue and Fascia, Percutaneous Approach (ICD-10-PCS; 2018-03-25)
PROC: 06H033Z Insertion of Infusion Device into Inferior Vena Cava, Percutaneous Approach (ICD-10-PCS; 2018-03-25)
PROC: B5191ZA Fluoroscopy of Inferior Vena Cava using Low Osmolar Contrast, Guidance (ICD-10-PCS; 2018-03-25)
DX: T82.7XXA Infection and inflammatory reaction due to other cardiac and vascular devices, implants and grafts, initial encounter (principal); N18.6 End stage renal disease; A41.9 Sepsis, unspecified organism; L03.90 Cellulitis, unspecified; I12.0 Hypertensive chronic kidney disease with stage 5 chronic kidney disease or end stage renal disease; T82.41XA Breakdown (mechanical) of vascular dialysis catheter, initial encounter; E11.22 Type 2 diabetes mellitus with diabetic chronic kidney disease; E11.51 Type 2 diabetes mellitus with diabetic peripheral angiopathy without gangrene; M19.90 Unspecified osteoarthritis, unspecified site; E11.319 Type 2 diabetes mellitus with unspecified diabetic retinopathy without macular edema; E87.70 Fluid overload, unspecified; E11.21 Type 2 diabetes mellitus with diabetic nephropathy; D64.9 Anemia, unspecified; Y84.1 Kidney dialysis as the cause of abnormal reaction of the patient, or of later complication, without mention of misadventure at the time of the procedure; E11.40 Type 2 diabetes mellitus with diabetic neuropathy, unspecified; E78.00 Pure hypercholesterolemia, unspecified; E78.5 Hyperlipidemia, unspecified; E87.5 Hyperkalemia; F12.90 Cannabis use, unspecified, uncomplicated; I48.91 Unspecified atrial fibrillation; Z99.2 Dependence on renal dialysis; Z88.8 Allergy status to other drugs, medicaments and biological substances; Z79.899 Other long term (current) drug therapy; Z89.422 Acquired absence of other left toe(s); Z89.421 Acquired absence of other right toe(s); Y92.89 Other specified places as the place of occurrence of the external cause
CPT/HCPCS: 36415; 36556; 36558; 36589; 71045; 76937; 77001; 80048; 80053; 80061; 80202; 82550; 82553; 82962; 83735; 84484; 85025; 85610; 85730; 86022; 86705; 86709; 86803; 87040; 87340; 93005; 93970; 94640; 96374; 96375; 97162; 99152; 99153; 99291; C1750; C1752; C1769; C1893; J1200; J1642; J1644; J1815; J2060; J2250; J2270; J2543; J3010; J3370; J3490; J7030; J7050; J7060; J7620; Q0163; Q9967

== ENCOUNTER 2018-05-09 08:54 | Emergency (ER) | payer MEDICARE, MEDICAID ==
[~2018-05-09] VITALS: Ht 177.8 cm; Wt 110.0 kg
[~2018-05-09 08:54] MED LIST changes: -AMIODARONE PA; +AMLO5TAB88 PO; -HYDR-523 PO; -LABE100T PO; -METO-293 PO
[2018-05-09 10:25] LABS: BASOPHILS % 0.9 % (0.0-2.0); HEMATOCRIT. 33.8 % (42.0-52.0); HEMOGLOBIN. 10.7 g/dL (14.0-18.0); LYMPHOCYTES % 23.3 % (20.0-50.0); MEAN CORPUSCULAR HEMOGLOBIN 27.1 pg (28.0-32.0); MEAN PLATELET VOLUME 10.3 fl (7.4-10.4); MONOCYTES % 8.9 % (2.0-8.0); NEUTROPHILS % 60.9 % (40.0-76.0); PLATELET 135 x1000/uL (130-400); RED BLOOD CELL COUNT 3.93 mill/uL (4.7-6.1); RED CELL DISTRIBUTION WIDTH 23.1 % (11.6-14.6)
[2018-05-09 10:41] LABS: PLATELET ESTIMATE NORMAL
[2018-05-09 11:52] LABS: CHLORIDE 100 mEq/L (98-107); INR 1.2; PROTHROMBIN TIME 12.5 sec (9.1-11.1)
[2018-05-09] MEDS ORDERED: INSULIN REGULAR (HUMULIN R) 300UNITS/3ML IV ONE (12:00)
[2018-05-09] MEDS ORDERED: SODIUM BICARBONATE 8.4% 1 MEQ/ML 50ML SYR IV ONE (12:00)
[2018-05-09] MEDS ORDERED: DEXTROSE 50% WATER 50ML SYRINGE IV ONE ×2 (12:00→13:46)
[2018-05-09] MEDS ORDERED: SODIUM POLYSTYRENE SULFONATE 15 G/60 ML BOT PO ONE (12:00)
[2018-05-09] MEDS ORDERED: DIPHENHYDRAMINE 50MG/ML VIAL IV PRN (13:00)
[2018-05-09] MEDS ORDERED: HYDROCODONE/ACETAMINOPHEN 5/325MG TABLET PO PRN (13:00)
[2018-05-09] MEDS ORDERED: CLONIDINE 0.1MG TABLET PO PRN (13:00)
[2018-05-09] MEDS ORDERED: ONDANSETRON HCL 4MG/2ML VIAL IV PRN (13:00)
[2018-05-09] MEDS ORDERED: ACETAMINOPHEN 325MG TABLET PO PRN (13:00)
[2018-05-09 13:02] VITALS: BP 134/81
== END 2018-05-09 15:11 | disposition left against medical advice (07) ==
LOC: ER 08:54 → EDBEDREQ 12:10 → ER 15:11 → CANBEDREQ 15:19
DX: T82.898A Other specified complication of vascular prosthetic devices, implants and grafts, initial encounter (principal); I12.0 Hypertensive chronic kidney disease with stage 5 chronic kidney disease or end stage renal disease; D63.1 Anemia in chronic kidney disease; E87.5 Hyperkalemia; N18.6 End stage renal disease; R79.89 Other specified abnormal findings of blood chemistry; F12.10 Cannabis abuse, uncomplicated; Z99.2 Dependence on renal dialysis; Z88.8 Allergy status to other drugs, medicaments and biological substances; Y84.1 Kidney dialysis as the cause of abnormal reaction of the patient, or of later complication, without mention of misadventure at the time of the procedure; Y92.018 Other place in single-family (private) house as the place of occurrence of the external cause
CPT/HCPCS: 36415; 36569; 71045; 76937; 80053; 82962; 85025; 85610; 93005; 96374; 96375; 99285; C1752; C1769; J1815; J3490; J7040

== ENCOUNTER 2018-10-06 13:15 | Inpatient (IN) | payer MEDICARE, MEDICAID ==
[~2018-10-06] VITALS: Ht 190.5 cm; Wt 94.8 kg
[2018-10-06] MEDS ORDERED: MORPHINE SULFATE 4 MG/ML CPJ (NOT FOR IM USE) IV STA (14:27)
[2018-10-06] MEDS ORDERED: ONDANSETRON HCL 4MG/2ML INJ IV STA (14:27)
[2018-10-06] MEDS ORDERED: SODIUM CHLORIDE 0.9% 1,000 ML IV ONE (14:27)
[2018-10-06 15:33] LABS: CHLORIDE 103 mEq/L (98-107)
[2018-10-06 18:36] LABS: BASOPHILS % 0.5 % (0.0-2.0); EOSINOPHILS % 4.1 % (0.0-5.0); HEMATOCRIT. 33.9 % (42.0-52.0); HEMOGLOBIN. 10.3 g/dL (14.0-18.0); LYMPHOCYTES % 20.4 % (20.0-50.0); MEAN CORPUSCULAR HEMOGLOBIN 24.7 pg (28.0-32.0); MEAN CORPUSCULAR VOLUME 81.5 fL (80.0-94.0); MEAN PLATELET VOLUME 10.2 fl (7.4-10.4); MONOCYTES % 11.9 % (2.0-8.0); NEUTROPHILS % 63.1 % (40.0-76.0); PLATELET 108 x1000/uL (130-400); RED BLOOD CELL COUNT 4.15 mill/uL (4.7-6.1); RED CELL DISTRIBUTION WIDTH 23.4 % (11.6-14.6)
[2018-10-06 18:42] LABS: INR 1.2; PARTIAL THROMBOPLASTIN TIME 38.5 sec (23.4-31.0)
[2018-10-06 19:04] LABS: PLATELET ESTIMATE DECREASED
[2018-10-06] MEDS ORDERED: IPRATROPIUM/ALBUTEROL 0.5-3(2.5)MG/3ML NEB INH PRN (20:15)
[2018-10-06] MEDS ORDERED: DOCUSATE SODIUM 100MG CAPSULE PO PRN (20:15)
[2018-10-06] MEDS ORDERED: ACETAMINOPHEN 325MG TABLET PO PRN (20:15)
[2018-10-06] MEDS ORDERED: ONDANSETRON HCL 4MG/2ML INJ IV PRN (20:15)
[2018-10-06] MEDS ORDERED: CLONIDINE 0.1MG TABLET PO PRN (20:15)
[2018-10-06] MEDS ORDERED: HYDROCODONE/ACETAMINOPHEN 5/325MG TABLET PO PRN (20:15)
[2018-10-06 23:35] VITALS: BP 111/62
[2018-10-07] VITALS: BP 111/62
[2018-10-07] MEDS ORDERED: DEXTROSE 50% WATER 50ML SYRINGE IV PRN (01:30)
[2018-10-07] MEDS: BLOOD SUGAR DIAGNOSTIC STRIP TEST SCH ×4 (06:21→21:41)
[2018-10-07] MEDS: INSULIN LISPRO 100 UNITS/ML SUBCUT SCH ×4 (07:50→21:00)
[2018-10-07 08:00] VITALS: BP 115/73
[2018-10-07 12:00] VITALS: BP 130/85
[2018-10-07] MEDS ORDERED: VANCOMYCIN HCL 500 MG/VIAL ONE (12:58)
[2018-10-07] MEDS ORDERED: NORMAL SALINE 0.9% 10 ML SYR ONE (12:58)
[2018-10-07] MEDS ORDERED: BUPIVACAINE HCL/PF 0.25% (2.5MG/ML) 10ML ONE (12:58)
[2018-10-07] MEDS ORDERED: BACITRACIN 50,000 UNITS/VIAL ONE (12:58)
[2018-10-07 16:00] VITALS: BP 145/66
[2018-10-07 20:00] VITALS: BP 113/74
[2018-10-07] MEDS: NEOMY SULF/BACITRAC ZN/POLY OINT 28GM TOP SCH (21:41)
[2018-10-08] MEDS: BLOOD SUGAR DIAGNOSTIC STRIP TEST SCH ×4 (06:52→21:57)
[2018-10-08] MEDS: INSULIN LISPRO 100 UNITS/ML SUBCUT SCH ×4 (06:52→21:00)
[2018-10-08 08:00] VITALS: BP 125/76
[2018-10-08] MEDS: NEOMY SULF/BACITRAC ZN/POLY OINT 28GM TOP SCH ×2 (09:00→21:58)
[2018-10-08 12:00] VITALS: BP 137/69
[2018-10-08 16:25] VITALS: BP 159/90
[2018-10-08 20:00] VITALS: BP 117/62
[2018-10-09] VITALS: BP 104/69
[2018-10-09] MEDS: BLOOD SUGAR DIAGNOSTIC STRIP TEST SCH ×2 (07:20→12:20)
[2018-10-09] MEDS: INSULIN LISPRO 100 UNITS/ML SUBCUT SCH ×2 (07:50→12:50)
[2018-10-09 08:00] VITALS: BP 138/80
[2018-10-09] MEDS: NEOMY SULF/BACITRAC ZN/POLY OINT 28GM TOP SCH (09:00)
== END 2018-10-09 12:25 | disposition left against medical advice (07) | DRG 562 ==
LOC: ER 14:27 → 6EST 19:31 → ENRESERV 22:00
PROVIDERS: ADMIT Internal Medicine; ATTEND Internal Medicine
PROC: 2W3RX1Z Immobilization of Left Lower Leg using Splint (ICD-10-PCS; principal; 2018-10-06)
PROC: 5A1D70Z Performance of Urinary Filtration, Intermittent, Less than 6 Hours Per Day (ICD-10-PCS; 2018-10-07)
DX: S82.302A Unspecified fracture of lower end of left tibia, initial encounter for closed fracture (principal); N18.6 End stage renal disease; E46 Unspecified protein-calorie malnutrition; I13.2 Hypertensive heart and chronic kidney disease with heart failure and with stage 5 chronic kidney disease, or end stage renal disease; I50.32 Chronic diastolic (congestive) heart failure; S82.832A Other fracture of upper and lower end of left fibula, initial encounter for closed fracture; D64.9 Anemia, unspecified; E11.22 Type 2 diabetes mellitus with diabetic chronic kidney disease; I48.0 Paroxysmal atrial fibrillation; E11.51 Type 2 diabetes mellitus with diabetic peripheral angiopathy without gangrene; E78.5 Hyperlipidemia, unspecified; X58.XXXA Exposure to other specified factors, initial encounter; D63.1 Anemia in chronic kidney disease; Z53.21 Procedure and treatment not carried out due to patient leaving prior to being seen by health care provider; I44.0 Atrioventricular block, first degree; M12.9 Arthropathy, unspecified; E11.319 Type 2 diabetes mellitus with unspecified diabetic retinopathy without macular edema; E11.40 Type 2 diabetes mellitus with diabetic neuropathy, unspecified; Z79.4 Long term (current) use of insulin; Z91.19 Patient's noncompliance with other medical treatment and regimen; Z99.2 Dependence on renal dialysis; Y93.89 Activity, other specified; Y92.89 Other specified places as the place of occurrence of the external cause; Y99.8 Other external cause status; Z68.26 Body mass index [BMI] 26.0-26.9, adult; Z79.899 Other long term (current) drug therapy; Z88.8 Allergy status to other drugs, medicaments and biological substances
CPT/HCPCS: 36415; 71045; 73560; 73590; 73610; 73620; 82962; 86850; 86900; 93005; 93970; 97162; 99285; J3370; J3490; J7030